=== PATIENT | female | born 1985 ===

== ENCOUNTER 2021-05-03 10:45 | Outpatient (RCR) | payer BC, SELFPAY ==
[2021-04-17 14:22] VITALS: BMI 27.4
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
--- NOTE | 2021-04-18 10:18 | PC.ADMIT ---
Patient is a 35 year old female who was referred to [facility] PHP by her outpatient therapist and prescriber d/t increase in depression with passive SI- no plan or intent, and increased anxiety. Patient reports triggers include the pandemic and work related stressors. Patient taking a leave of absence from work to work on her mental health. Patient is alert and oriented x4. Calm and cooperative. No current SI. I asked patient who could she contact if she felt unsafe and she stated her brother, sisters, or friends. She has the crisis number if needed. Patient gave verbal permission to email her a copy of her safety plan. Medications reconciled with patient and patient's pharmacy. Patient reports taking medications as prescribed.
--- NOTE | 2021-04-24 16:17 | HO.PHPPROGNO ---
Subjective Subjective Date of Service: 04/24/21 Reason For Visit: Depression, Anxiety Guardianship: No Medical Problems Affecting Mental Status: No Interim History: Keturah reports I feel neutral when asked how she was feeling today. She denies any type of thoughts of harm to self or others at this time, no safety concerns. She does report medication has been increased recently Wellbutrin SR was increased to 200 mg daily, to start today. Medication Compliance: Yes Side effects from medications: No Attending Groups: Yes Review of Systems Acute medical concerns: No Medical Review of Systems: unchanged Mental Status Exam Mental Status Exam Narrative: Well developed, well nourished female, appropriately groomed and dressed. NAD. Fully conversant and attentive during encunter. Patient Appearance: Well Grooomed and Appropriate Patient Orientation: Person, Place, Time and Situation Level of Consciousness: Awake, Appropriate and Alert Patient Behavior: Appropriate, Cooperative and Good Eye Contact Mood Description: Appropriate and Depressed (reports feeling neutral ) Affect Description: Appropriate and Depressed Patient Cognition Impaired: No Ability to Follow Directions: Excellent Speech Pattern: Clear, Appropriate and Coherent Memory Description: Intact Hallucinations: None Delusions: Not Present Thought Process: Intact, Goal Oriented and Linear Thought Content: positive for Intact, positive for Goal Oriented and positive for Linear Depressive Symptoms: Increased Anxiety, Feelings of Worthlessness, Hopelessness, Isolating-Friends/Family, Feelings of Guilt and Unhappiness Judgement: Fair Diagnostics Vital Signs (24Hr): Body Mass Index 27.4 Assessment & Plan Assessment & Plan (1) Generalized anxiety disorder: Status: Acute Code(s): F41.1 - Generalized anxiety disorder Assessment and Plan: Patient reports she continues utilizing lorazepam 0.5 mg b.i.d. as needed for anxiety, with positive affect. Denies any increased anxiety symptoms since last visit. (2) Major depressive disorder, recurrent severe without psychotic features: Status: Acute Code(s): F33.2 - Major depressive disorder, recurrent severe without psychotic features Assessment and Plan: Patient reports that she saw her provider and her Wellbutrin SR was increased earlier today from 150 mg daily to 200 mg daily. We discussed TMS, as patient has had this in the past with positive effect. She reports that she did consult with past TMS provider, and that they told her that she did not qualify for treatment at this time after she had completed an evaluation with them. She denies any type of SI, feels safe. Assessment and Plan: 1. No medication changes, as patient just had Wellbutrin increased by her outpatient provider. 2. Follow-up as per protocol. Patient educated on: diagnosis, medication risk/benefits and therapeutic strategies Informed Consent: understands Reason for contiued partial hosp. stay Substantial Risk for: inability to function and med/psych decompensation Certification I certify that partial hospital treatment is medically necessary due to the symptoms and problems resulting from the patient's mental illness and the failure to treat the patient at the partial hospital level of care would likely result in the patient requiring inpatient psychiatric care which could not be prevented at a less intensive level of care. Greater than 50% of the session was spent on counseling and/or coordination of care Discharge Plan Discharge Attending provider: Chris Manuel Primary Care Provider: Evie Mcdonough Medications: No Action bupropion HCl [Wellbutrin SR] 150 mg Tablet Sustained-Release 12 Hr 150 mg PO DAILY RF: 0 Cryselle (28) 0.3-30 mg-mcg Tablet 1 tab PO DAILY RF: 0 lorazepam 0.5 mg Tablet 0.5 mg PO BID PRN (Reason: Anxiety) RF: 0 spironolactone 50 mg Tablet 50 mg PO BID RF: 0 Referrals: Evie Mcdonough MD [Primary Care Provider] - 1 Week Telehealth Telehealth Location of provider rendering services: practice address Location of patient: address on file Patient Identification confirmed using: Name, : Yes Telehealth method: video Patient verbally consented to treatment: Yes Patient verbally consented to billing insurance company: Yes Patient informed of any privacy concerns related to visit: Yes Time spent with patient (mins): 15
--- NOTE | 2021-05-03 13:36 | P.PNPSP_ITS ---
Subjective Subjective Date of Service: 05/03/21 Reason For Visit: Depression, Anxiety Guardianship: No Medical Problems Affecting Mental Status: No Interim History: Keturah reports that she continues with depressed mood, with minimal improvement in symptoms. She does report that she feels safe at this time, and denies SI. She says that her sleeping has improved. Since the increase of Wellbutrin recently to 200mg daily (by her outpatient provider), she says she has experienced some faint ringing in her ears at times. She describes it as intermittent, and not bothersome at this time. Medication Compliance: Yes Side effects from medications: Yes (faint intermittent ringing in ears, relates it to wellbutrin inc.) Attending Groups: Yes Review of Systems Acute medical concerns: No Medical Review of Systems: unchanged Review of Systems Review of Systems Yes all other systems are reviewed and are negative Mental Status Exam Mental Status Exam Narrative: Well developed, well nourished female, in no acute distress. Sitting up, fully attentive during encounter. Patient Appearance: Well Grooomed and Appropriate Patient Orientation: Person, Place, Time and Situation Level of Consciousness: Awake, Appropriate and Alert Patient Behavior: Appropriate, Cooperative and Good Eye Contact Mood Description: Appropriate and Depressed Affect Description: Appropriate, Depressed, Blunted and Flat Patient Cognition Impaired: No Ability to Follow Directions: Excellent Speech Pattern: Clear, Coherent and Soft-Spoken Memory Description: Intact Hallucinations: None Delusions: Not Present Thought Process: Intact, Goal Oriented and Linear Thought Content: positive for Intact, positive for Goal Oriented and positive for Linear Depressive Symptoms: Difficulty Sleeping, Loss of Int. in Activity, Feelings of Worthlessness, Hopelessness, Unhappiness, Increased Fatigue and Loss of Energy Judgement: Fair Diagnostics Vital Signs (24Hr): Body Mass Index 27.4 Assessment & Plan Assessment & Plan (1) Major depressive disorder, recurrent severe without psychotic features: Status: Acute Code(s): F33.2 - Major depressive disorder, recurrent severe without psychotic features Assessment and Plan: Keturah reports that she is still depressed. Reports some improvement in depressive symptoms since medication Wellbutrin was increased, but then stated ?although not a lot of improvement ?. She does report that her sleeping has improved somewhat. She does report intermittent ringing in ears, although she states that is not bothersome at this time. She states she will discuss any further concerns regarding this with her outpatient provider. She states that she feels safe at this time, with no thoughts of self-harm in any way. No safety concerns. We discussed medication options, such as dose titration, add adjunctive medications, etc.. She stated that she has an outpatient appointment with her provider this coming Saturday, and she would prefer to wait until she sees her provider. Today is her last day, and she states that she does feel depressed, but is ready for discharge at this time. (2) Generalized anxiety disorder: Status: Acute Code(s): F41.1 - Generalized anxiety disorder Assessment and Plan: Patient utilizing p.r.n. lorazepam, states that she has not needed to use it often recently. States that she feels her anxiety is under control, although she will use the lorazepam when it is needed. Assessment and Plan: 1. Follow-up with outpatient provider going forward. 2. Patient discharging from [facility] today. Patient educated on: diagnosis, medication risk/benefits and therapeutic strategies Informed Consent: understands Reason for contiued partial hosp. stay Substantial Risk for: stable for discharge Certification I certify that partial hospital treatment is medically necessary due to the symptoms and problems resulting from the patient's mental illness and the failure to treat the patient at the partial hospital level of care would likely result in the patient requiring inpatient psychiatric care which could not be prevented at a less intensive level of care. Greater than 50% of the session was spent on counseling and/or coordination of care Discharge Plan Discharge Attending provider: Chris Manuel Primary Care Provider: Evie Mcdonough Additional Instructions: Hector Velez [facility] 05/04/21, Jacki Srivastava [facility] [employer] 05/05/21 Medications: No Action bupropion HCl [Wellbutrin SR] 150 mg Tablet Sustained-Release 12 Hr 150 mg PO DAILY RF: 0 Cryselle (28) 0.3-30 mg-mcg Tablet 1 tab PO DAILY RF: 0 lorazepam 0.5 mg Tablet 0.5 mg PO BID PRN (Reason: Anxiety) RF: 0 spironolactone 50 mg Tablet 50 mg PO BID RF: 0 Referrals: Evie Mcdonough MD [Primary Care Provider] - 1 Week Stand Alone Forms: Patient Portal Discharge page Telehealth Telehealth Location of provider rendering services: practice address Location of patient: address on file Patient Identification confirmed using: Name, : Yes Telehealth method: video Patient verbally consented to treatment: Yes Patient verbally consented to billing insurance company: Yes Patient informed of any privacy concerns related to visit: Yes Time spent with patient (mins): 15
== END 2021-05-04 08:07 | disposition home or self-care (01) ==
LOC: HO.PHPA 10:45
PROVIDERS: PCP Internal Medicine; Visit Provider Psychiatry & Neurology Psychiatry
DX: F33.2 Major depressive disorder, recurrent severe without psychotic features (principal); F41.1 Generalized anxiety disorder; Z79.899 Other long term (current) drug therapy
CPT/HCPCS: 90853